=== PATIENT | male | born 1960 | race African-American/Black ===

== ENCOUNTER 2020-07-12 11:11 | Emergency (ER) | payer MEDICAID ==
[~2020-07-12] VITALS: Ht 177.8 cm; Wt 73.0 kg
[2020-07-12] MEDS ORDERED: LIDOCAINE HCL/EPINEPHRINE 1%-EPI 1:100,000 10 ML VIAL IJ ONE (12:00)
[2020-07-12] MEDS ORDERED: BACITRACIN ZINC OINT UDPKT TOP ONE (12:00)
[2020-07-12] MEDS ORDERED: LIDOCAINE HCL/EPINEPHRINE 1%-EPI 1:100,000 20 ML VIAL INFIL SCH (12:15)
[2020-07-12] MEDS ORDERED: TETANUS, DIPHTHERIA, PERTUSSIS VAC/PF 0.5ML (>7YR OLD) IM ONE (14:45)
[2020-07-12] MEDS ORDERED: CEPH500C2 MT (15:36)
[2020-07-12] MEDS ORDERED: IBUP-2029 MT (15:36)
[2020-07-12] MEDS ORDERED: HYDR-4346 MT (15:36)
[2020-07-12 17:32] VITALS: BP 126/80
== END 2020-07-12 17:33 | disposition home or self-care (01) ==
LOC: ER 11:24
DX: S02.2XXA Fracture of nasal bones, initial encounter for closed fracture (principal); S51.812A Laceration without foreign body of left forearm, initial encounter; I10 Essential (primary) hypertension; Z79.899 Other long term (current) drug therapy; Y04.0XXA Assault by unarmed brawl or fight, initial encounter; Y93.89 Activity, other specified; Y92.89 Other specified places as the place of occurrence of the external cause; Y99.8 Other external cause status
CPT/HCPCS: 12002; 70450; 70486; 71045; 73090; 73502; 90471; 90715; 99285; J3490

== ENCOUNTER 2024-07-05 08:10 | Emergency (ER) | payer MEDICAID, MEDICARE ==
[~2024-07-05] VITALS: Ht 175.3 cm; Wt 100.0 kg
[~2024-07-05 08:10] MED LIST: CEPH500C2 MT; HYDR-4346 MT; IBUP-2029 MT
[2024-07-05 08:13] VITALS: O2SAT 100
[2024-07-05] MEDS: ACETAMINOPHEN 325MG TABLET PO ONE (08:30)
[2024-07-05] MEDS: TETANUS, DIPHTHERIA, PERTUSSIS VAC/PF 0.5ML (>10YR OLD) IM ONE (08:30)
[2024-07-05] MEDS: BACITRACIN ZINC OINT UDPKT TOP ONE (08:48)
[2024-07-05] MEDS: LIDOCAINE HCL/PF 1% 10 MG/ML 5ML VIAL INFIL ONE (08:48)
[2024-07-05 13:44] VITALS: BP 150/110; PULSE 99; RESP 16; TEMP 36.8; O2SAT 100
== END 2024-07-05 13:45 | disposition home or self-care (01) ==
LOC: ER 08:10
DX: S81.812A Laceration without foreign body, left lower leg, initial encounter (principal); S21.112A Laceration without foreign body of left front wall of thorax without penetration into thoracic cavity, initial encounter; Z79.899 Other long term (current) drug therapy; Y04.0XXA Assault by unarmed brawl or fight, initial encounter; Y93.89 Activity, other specified; Y92.89 Other specified places as the place of occurrence of the external cause; Y99.8 Other external cause status
CPT/HCPCS: 93880; 93971; 71045; 76604; 76705; 90715; 12002; 90471; 99285; Z7610 ×2; 99284